=== PATIENT | female | born 1995 | race African-American/Black ===

== ENCOUNTER 2021-12-09 11:39 | Emergency (ER) | payer OTHER ==
[~2021-12-09] VITALS: Ht 165.1 cm; Wt 87.3 kg
[2021-12-09 12:39] LABS: RSV AMPLIFICATION NEGATIVE (NEGATIVE)
[2021-12-09] MEDS ORDERED: KETOROLAC 30 MG/ML 1ML VIAL IV ONE (16:40)
[2021-12-09] MEDS ORDERED: ONDANSETRON 4MG 2ML VIAL IV ONE (16:40)
[2021-12-09] MEDS ORDERED: NS 1,000 ML IV ONE (16:40)
[2021-12-09 17:23] LABS: BASO % 0.4 % (0.0-1.0); EOS % 0.6 % (0.0-3.0); HEMOGLOBIN 10.2 g/dl (12.0-15.5); LYMPH % 39.6 % (24.0-44.0); MEAN CORPUSCULAR HEMOGLOBIN 23.2 pg (27.0-33.0); MEAN CORPUSCULAR HGB CONC 28.3 g/dl (32.0-36.5); MEAN CORPUSCULAR VOLUME 81.8 fl (80.0-96.0); MONO # 0.5 10^3/uL (0.0-0.8); MONO % 9.6 % (2.0-8.0); NEUTROPHILS # 2.5 10^3/uL (1.5-8.5); NEUTROPHILS % 49.4 % (36.0-66.0); PLATELET COUNT, AUTOMATED 248 10^3/uL (150-450); WHITE BLOOD COUNT 5.1 10^3/uL (4.0-10.0)
[2021-12-09] MEDS ORDERED: POTASSIUM CHLORIDE 10MEQ SR TABLET PO ONE (17:25)
[2021-12-09 17:46] LABS: ALBUMIN 3.6 GM/DL (3.2-5.2); BILIRUBIN,DIRECT 0.2 MG/DL (0.0-0.2); BILIRUBIN,TOTAL 0.7 MG/DL (0.2-1.0); TOTAL PROTEIN 8.3 GM/DL (6.4-8.2)
[2021-12-09] MEDS ORDERED: ISOVUE-370 76% 100ML VIAL As Ordered ONE (17:47)
[2021-12-09] MEDS ORDERED: ONDA4TAB6 PO (19:46)
[2021-12-09 20:03] VITALS: BP 130/66
== END 2021-12-09 20:05 | disposition home or self-care (01) ==
LOC: M ED 11:39
DX: D25.9 Leiomyoma of uterus, unspecified (principal)
CPT/HCPCS: 74177; 76705; 80047; 80076; 81001; 83690; 84702; 85025; 87086; 87631; 96361; 96374; 96375; 99284; J1885; J2405; Q9967